=== PATIENT | female | born 1960 | race Caucasian/White ===

== ENCOUNTER 2024-06-24 09:54 | Day surgery (SDC) | payer MEDICARE, OTHER ==
[2024-06-24 11:31] VITALS: BP 132/62; TEMP 98.3
== END 2024-06-24 11:05 | disposition home or self-care (01) ==
LOC: CSHULT 09:54
PROVIDERS: ATTEND Otolaryngology Plastic Surgery within the Head & Neck
PROC: 0G9G3ZX Drainage of Left Thyroid Gland Lobe, Percutaneous Approach, Diagnostic (ICD-10-PCS; principal; 2024-06-24)
DX: E04.1 Nontoxic single thyroid nodule (principal)
CPT/HCPCS: 10005; 88173; 88305